=== PATIENT | male | born 1960 | race African-American/Black ===

== ENCOUNTER 2024-04-14 07:13 | Emergency (ER) | payer OTHER ==
[~2024-04-14] VITALS: Ht 162.6 cm; Wt 73.0 kg
[2024-04-14 07:14] VITALS: TEMP 98; O2SAT 100
[2024-04-14 07:30] VITALS: BP 136/76; PULSE 60; RESP 18
[2024-04-14] MEDS: OXYCODONE HCL/ACETAMINOPHEN 5/325MG TABLET PO ONE (07:30)
== END 2024-04-14 09:30 | disposition left against medical advice (07) ==
LOC: ER 07:13
DX: M54.9 Dorsalgia, unspecified (principal)
CPT/HCPCS: 99283